=== PATIENT | female | born 1985 | race Caucasian/White ===

== ENCOUNTER 2024-04-01 15:29 | Emergency (ER) | payer BC, OTHER ==
[2024-04-01 15:36] VITALS: BP 117/79; RESP 18; TEMP 97; BMI 30.2
[2024-04-01 15:52] VITALS: PULSE 105
[2024-04-01 16:35] LABS: BASO % 0.6 % (0-2.0); HEMATOCRIT 39.1 % (32.4-45.2); HEMOGLOBIN 12.6 GM/dL (10.7-15.3); LYMPH % 18.8 % (8-40); MCH 24.8 pg (25.7-33.7); MCHC 32.2 g/dl (32.0-36.0); MEAN PLT VOLUME 8.4 fl (7.5-11.1); MONO % 9.5 % (3.8-10.2); NEUT % 70.1 % (42.8-82.8); PLATELET COUNT 266 10^3/uL (134-434); RBC 5.08 M/mm3 (3.60-5.2); RDW 15.3 % (11.6-15.6); WHITE BLOOD COUNT 7.2 K/mm3 (4.0-10.0)
[2024-04-01] MEDS: SODIUM CHLORIDE 0.9% 500 ML INFUS.BAG IV ONE (16:36)
[2024-04-01 17:04] LABS: POTASSIUM 4.1 mmol/L (3.5-5.1)
[2024-04-01 17:07] LABS: ALBUMIN 3.6 g/dl (3.4-5.0); BLOOD UREA NITROGEN 12.6 mg/dL (7-18); MAGNESIUM 2.1 mg/dL (1.8-2.4)
[2024-04-01 17:10] LABS: CREATININE 1.1 mg/dL (0.55-1.3)
[2024-04-01 17:11] LABS: TOT PROT 7.4 g/dl (6.4-8.2)
[2024-04-01 17:12] LABS: BILIRUBIN,TOTAL 0.3 mg/dL (0.2-1)
== END 2024-04-01 18:06 | disposition home or self-care (01) ==
LOC: JER 15:29
DX: R00.2 Palpitations (principal); R00.0 Tachycardia, unspecified
CPT/HCPCS: 36415; 80053; 83735; 84439; 84443; 84484; 85025; 93005; 93010; 99284-25